=== PATIENT | female | born 1990 | race Caucasian/White ===

== ENCOUNTER 2017-04-12 12:13 | Emergency (ER) | payer SELFPAY ==
[~2017-04-12] VITALS: Ht 165.1 cm; Wt 54.5 kg
[2017-04-12 13:08] LABS: HEMATOCRIT 44.4 % (36.0-46.0); MCH 32.5 PG (29.0-34.0); MCHC 33.6 G/DL (30.0-36.0); MCV 96.9 FL (83-99); MEAN PLAT.VOLUME 9.2 uM^3 (9.5-12.4); PLATELET COUNT 327 K/uL (156-360); RBC DIS.WIDTH-CV 12.2 % (11.8-14.6); RBC DIS.WIDTH-SD 43.9 % (39-53); RED BLOOD COUNT 4.58 M/uL (3.80-5.20); WHITE BLOOD COUNT 8.3 K/uL (4.1-10.2)
[2017-04-12 13:31] LABS: CHLORIDE 103 mEq/L (99-109); POTASSIUM 4.1 mEq/L (3.7-5.4); SODIUM 139 mEq/L (136-147)
[2017-04-12 13:33] LABS: GLUCOSE 99 mg/dL (70-99)
[2017-04-12 13:34] LABS: ANION GAP 13 MEQ/L (2-14)
[2017-04-12 13:37] LABS: GFR ESTIMATE (CALCULATED) > 59 mL/min/
[2017-04-12 13:38] LABS: UREA NITROGEN (BUN) 8 mg/dL (9-23)
[2017-04-12 13:44] LABS: TROP-I INTERPRETATION NEGATIVE; TROPONIN-I < 0.01 ng/mL (0.0-0.30)
[2017-04-12 14:26] LABS: D-DIMER ELISA < 150.00 ng/mLDDU (<230)
[2017-04-12 15:00] LABS: INFLUENZA A VIRAL ANTIGEN NEGATIVE; INFLUENZA B VIRAL ANTIGEN NEGATIVE
[2017-04-12 15:24] LABS: TROP-I INTERPRETATION NEGATIVE; TROPONIN-I < 0.01 ng/mL (0.0-0.30)
[2017-04-12] MEDS ORDERED: NAPROSYN500 MG PO (15:35)
[2017-04-12 15:56] VITALS: BP 139/93
== END 2017-04-12 15:57 | disposition home or self-care (01) ==
LOC: EME 12:13
PROVIDERS: Emergency Medicine
DX: R07.89 Other chest pain (principal); R05 Cough
CPT/HCPCS: 71020; 80048; 84484; 85027; 85379; 87502; 93005; 99281; 99285; J1885; J2270; J2405